=== PATIENT | male | born 1950 | race Caucasian/White ===

== ENCOUNTER 2016-07-03 07:41 | Day surgery (SDC) | payer MEDICARE, MEDICAID ==
[~2016-07-03] VITALS: Ht 165.1 cm; Wt 76.2 kg
[~2016-07-03 07:41] MED LIST: ASPI-1035 PO; ATOR10TA69 PO; CITA20TA11 PO; HYDR25TA PO; VERA180T MT
[2016-07-03] MEDS ORDERED: LACTATED RINGERS 1,000 ML IV SCH (09:15)
[2016-07-03] MEDS ORDERED: ROCURONIUM BROMIDE 10MG/ML VIAL 5ML IV ONE (09:36)
[2016-07-03] MEDS ORDERED: FENTANYL CITRATE/PF 50MCG/ML 2ML VIAL ONE (09:36)
[2016-07-03] MEDS ORDERED: IOHEXOL-300 100 ML BOTTLE ONE (09:36)
[2016-07-03] MEDS ORDERED: PROPOFOL 200MG/20ML VIAL IV ONE (09:36)
[2016-07-03] MEDS ORDERED: CEFAZOLIN 1000MG PREMIX 50 ML IV ONE (09:37)
[2016-07-03] MEDS ORDERED: ONDANSETRON HCL 4MG/2ML VIAL ONE (09:37)
[2016-07-03] MEDS ORDERED: METOCLOPRAMIDE HCL 10MG/2ML VIAL ONE (09:37)
[2016-07-03] MEDS ORDERED: GLYCOPYRROLATE 0.2 MG/ML 2ML VIAL ONE (10:42)
[2016-07-03] MEDS ORDERED: ESMOLOL HCL 10MG/ML 10ML VIAL IV ONE (10:42)
[2016-07-03] MEDS ORDERED: OMEP20CA10 PO (11:02)
[2016-07-03] MEDS ORDERED: DOCU-150 PO (11:02)
[2016-07-03] MEDS ORDERED: ISOS30TA6 PO (11:02)
[2016-07-03] MEDS ORDERED: NITR0.4T SL (11:02)
[2016-07-03] MEDS ORDERED: RANI150C12 PO (11:02)
[2016-07-03] MEDS ORDERED: HYDROCODONE/ACETAMINOPHEN 5/325MG TABLET PO NR (11:30)
[2016-07-03 11:48] VITALS: BP 139/79
== END 2016-07-03 12:25 | disposition home or self-care (01) ==
LOC: OR 07:41
PROVIDERS: ATTEND Internal Medicine Gastroenterology
DX: K80.51 Calculus of bile duct without cholangitis or cholecystitis with obstruction (principal); I10 Essential (primary) hypertension; E78.5 Hyperlipidemia, unspecified; K80.71 Calculus of gallbladder and bile duct without cholecystitis with obstruction; K80.80 Other cholelithiasis without obstruction; K21.9 Gastro-esophageal reflux disease without esophagitis; G89.29 Other chronic pain
CPT/HCPCS: 43264; 43277; 74328; C1726; C1769; J0690; J2405; J2765; J3010; J3490; J7120; Q9967; J2704